=== PATIENT | female | born 2000 | race Asian ===

== ENCOUNTER 2022-06-28 16:09 | Outpatient (CLI) | payer OTHER | END 2022-06-28 20:20 | disposition home or self-care (01) | LOC: SRD 16:09 | PROVIDERS: ATTEND Family Medicine | DX: S99.922A Unspecified injury of left foot, initial encounter (principal); S83.91XA Sprain of unspecified site of right knee, initial encounter; X58.XXXA Exposure to other specified factors, initial encounter; Y93.89 Activity, other specified; Y92.89 Other specified places as the place of occurrence of the external cause; Y99.8 Other external cause status | CPT/HCPCS: 73564 ==

== ENCOUNTER 2023-10-11 10:59 | Outpatient (CLI) | payer OTHER | END 2023-10-11 18:07 | disposition home or self-care (01) | LOC: SMI 10:59 | PROVIDERS: ATTEND Family Medicine | DX: S83.91XA Sprain of unspecified site of right knee, initial encounter (principal); M17.11 Unilateral primary osteoarthritis, right knee; X58.XXXA Exposure to other specified factors, initial encounter; Y93.89 Activity, other specified; Y92.89 Other specified places as the place of occurrence of the external cause; Y99.8 Other external cause status | CPT/HCPCS: 73721 ==